=== PATIENT | male | born 1965 | race African-American/Black ===

== ENCOUNTER 2021-07-03 16:43 | Outpatient (CLI) | payer OTHER, SELFPAY ==
--- NOTE | ~2021-07-03 | XR_ITS ---
EXAMINATION: XR chest 2V DATE: 07/03/2021 17:05 INDICATION: Cough TECHNIQUE: PA and lateral views of the chest were obtained. COMPARISON: None FINDINGS: Multiple old bilateral rib fractures as well as mild healed fracture of the lateral right clavicle. H eterotopic ossification along the bilateral coracoclavicular ligaments. Mild elevation of the left he midiaphragm. Mild opacities at the bilateral costophrenic angles and favor atelectasis over pneumonia . No pulmonary edema, pleural effusion or pneumothorax. The cardiomediastinal silhouette is normal. M oderate thoracic spondylosis. Indeterminate tiny metallic density projecting over the liver. IMPRESSION: 1. Mild opacities at the bilateral costophrenic angles and favor atelectasis/scarring over pneumonia. Reviewed, dictated and finalized at location A. [employer] IMPRESSION: 1. Mild opacities at the bilateral costophrenic angles and favor atelectasis/sc arring over pneumonia.
== END 2021-07-03 16:44 | disposition home or self-care (01) ==
PROVIDERS: PCP Nurse Practitioner; Visit Provider Nurse Practitioner
DX: R05.9 Cough, unspecified (principal); R91.8 Other nonspecific abnormal finding of lung field
CPT/HCPCS: 71046

== ENCOUNTER 2023-08-25 13:10 | Outpatient (CLI) | payer OTHER, SELFPAY | END 2023-08-25 13:11 | disposition home or self-care (01) | LOC: ANHPFT 13:12 | PROVIDERS: PCP Nurse Practitioner; Visit Provider Nurse Practitioner | DX: R05.3 Chronic cough (principal) | CPT/HCPCS: 94375; 94726; 94729 ==